=== PATIENT | male | born 1950 | race Caucasian/White ===

== ENCOUNTER 2024-05-25 22:04 | Observation (INO) ==
[2024-05-25 22:50] LABS: Basophils # (auto) 0.06 K/uL (0.00-0.20); Basophils % (auto) 0.4 %; Eosinophils # (auto) 0.07 K/uL (0.00-0.50); Eosinophils % (auto) 0.4 %; Hematocrit (blood only) 47.6 % (42.0-52.0); Hemoglobin 16.3 g/dl (14.0-18.0); Immature Granulocytes # (auto) 0.05 K/uL (0.01-0.20); Immature Granulocytes % (auto) 0.3 %; Lymphocytes # (auto) 3.25 K/uL (1.20-3.40); Lymphocytes % (auto) 20.5 %; Mean Corpuscular Hemoglobin 28.9 pg (25.0-34.0); Mean Corpuscular Hgb Conc 34.2 g/dL (32.0-36.0); Mean Corpuscular Volume 84.4 fL (80.0-100.0); Mean Platelet Volume 9.8 fL (9.4-12.4); Monocytes # (auto) 1.01 K/uL (0.11-0.59); Monocytes % (auto) 6.4 %; Neutrophils # (auto) 11.44 K/uL (1.40-6.50); Platelet Count 345 K/uL (130-400); RDW Coefficient of Variation 13.1 % (11.5-14.5); RDW Standard Deviation 40.2 fL (36.4-46.3); Red Blood Count 5.64 M/uL (4.70-6.10); White Blood Count 15.88 K/ul (4.8-10.8)
[2024-05-25 23:08] LABS: Alanine Aminotransferase 13 U/L (7-52); Albumin Globulin Ratio 1.3 (0.9-2); Albumin Level 4.1 gm/dl (3.4-5.0); Alkaline Phosphatase 72 U/L (34-104); BUN Creatinine Ratio 13.9 (10-20); Bilirubin,Total 0.6 mg/dl (0.2-1.0); Blood Urea Nitrogen 14 mg/dl (6-23); Calcium 9.1 mg/dl (8.6-10.3); Carbon Dioxide 27 mmol/L (21-32); Chloride 101 mmol/L (98-107); Globulin 3.2 gm/dl (2.5-4.0); Glucose 152 mg/dl (70-99(Fasting)); Total Protein 7.3 gm/dl (6.0-8.3)
[2024-05-25 23:23] LABS: INR 1.9 (0.9-1.1); Partial Thromboplastin Ratio 3.5; Prothrombin Time 19.8 Seconds (9.0-12.0)
[2024-05-25 23:41] LABS: Troponin I High Sensitivity 2034.6 pg/ml (0-20)
[2024-05-25] MEDS ORDERED: Heparin IV Adult Wt-Based Low-Dose w/ INITIAL Bolus Protocol IV STA (23:49)
[2024-05-25] MEDS: OPTIRAY 320 125ml IV ONE (23:50)
[2024-05-25 23:57] LABS: Partial Thromboplastin Time 93 Seconds (21-31)
[2024-05-26] MEDS ORDERED: HEPARIN SOD (PORCINE) 1000 UNIT/ML IV ONE (00:05)
[2024-05-26 00:06] LABS: Potassium 3.7 mmol/L (3.5-5.1)
--- NOTE | 2024-05-26 00:09 | CT Scan Report ---
Exam(s): CTA CHEST IV Amt: 117 ml opti 320 EXAM: CT Angiography Chest With Intravenous Contrast CLINICAL HISTORY: Reason for exam: hypoxia, ? PE vs pna. TECHNIQUE: Axial computed tomographic angiography images of the chest with intravenous contrast. Automated exposure control was utilized for the study. A dose lowering technique was utilized adhering to the principles of ALARA. MIP reconstructed images were created and reviewed. COMPARISON: No relevant prior studies available. FINDINGS: Pulmonary arteries: Bilateral upper lower and right middle lobe pulmonary emboli. There is flattening and bowing of the intraventricular septum consistent with right heart strain. Aorta: No acute findings. No thoracic aortic aneurysm. Lungs: Unremarkable. No mass. No consolidation. Pleural space: Unremarkable. No significant effusion. No pneumothorax. Heart: RV to LV ratio:1.7. No cardiomegaly. No significant pericardial effusion. Bones/joints: No acute fracture. No dislocation. Soft tissues: Unremarkable. Lymph nodes: Unremarkable. No enlarged lymph nodes. IMPRESSION: Bilateral upper, lower, and right middle lobe pulmonary emboli with evidence of right heart strain Communications: 05/26/24 00:06 Call Doctor Regarding Pulmonary Embolism, called Dr. Mcmahon on 05/26 00:08 (-04:00) Electronically signed by: Wang King MD 05/26/24 00:08 AM
[2024-05-26] MEDS: ASPIRIN CHEW 324 MG PO STA (00:10)
[2024-05-26 00:27] LABS: Partial Thromboplastin Ratio 1.1; Partial Thromboplastin Time 29 Seconds (21-31); Prothrombin Time 10.8 Seconds (9.0-12.0)
--- NOTE | 2024-05-26 00:34 | History & Physical Report ---
Date of Service May 26, 2024 Assessment & Plan (1) Pulmonary embolism, bilateral: Plan: 73yo male presenting with acute submassive pulmonary emboli. Symptom onset appx 16:00 with shortness of breath and bandlike chest discomfort. Patient with elevated HR in the upper 90's. Blood pressure has been relatively stable with one lower reading of 96/72. Labs are concerning with markedly elevated troponin level of 2034.6, elevated ASQ=713 and elevated lactate of 2.7 CT as above with extensive clot burden and evidence of right heart strain - bowing of intraventricular septum -Admit to PCU -Continue Heparin gtt -Check 2D echo -Check bilateral LE doppler -Follow up on Hypercoag panel as sent from the ER *Consideration to administering 1/4 to 1/2 dose of alteplase given patient's clinical picture - submassive PE. Presently is not demonstrating clinical evid ence of cardiovascular collapse, hypotension or tachycardia. PESI - Class II, Low risk. Modified PESI - high risk Shock index - 0.9 which could demonstrate occult shock present Will repeat lactate now. If increasing will discuss alteplase and MICU transfer (2) Hypertension: Plan: Blood pressure adequate at present. Patient does have history of HTN for which he takes HCTZ -Hold HCTZ -Closely monitor BP and hemodynamics (3) GERD (gastroesophageal reflux disease): Plan: Chronic -Protonix 40mg po daily F/E/N - saline lock. Avoid excess IVF given evidence of right heart strain, electrolytes WNL, Regular diet as tolerated Ppx - Heparin gtt Code - Full per discussion with patient Dispo -Admit to PCU, low threshold for MICU transfer History of Present Illness Chief Complaint: chest pain and shortness of breath Primary Care Provider: AMANDA Tavares Kash Alfonso is a 73yo male with history of HTN, GERD, recent urological procedure presenting with acute pulmonary emboli. Patient reports he went out to get the mail this afternoon around 15:30 when he became acutely short of breath and developed some bandlike chest pain across his anterior chest with radiation into his back. He reports feeling dizzy and very short of breath but did not pass out. Patient found to have extensive bilateral pulmonary emboli with CT evidence of right heart strain ER Course: Heparin bolus and gtt Allergies Allergy/AdvReac Type Severity Reaction Status Date / Time No Known Allergies Allergy Unverified 05/26/24 00:08 Home Medications Medication Instructions Recorded Confirmed Type esomeprazole magnesium 20 mg 20 mg PO DAILY 05/26/24 05/26/24 History capsule,delayed release hydrochlorothiazide 12.5 mg tablet 12.5 mg PO DAILY 05/26/24 05/26/24 History phenazopyridine 100 mg tablet 100 mg PO TID PRN urinary 05/26/24 05/26/24 History discomfort Past Med/Surg History Problem List (Updated 05/26/24 @ 02:23 by Jessica Awad DO) Prostate cancer Elevated troponin (Acute) Pulmonary embolism, bilateral (Acute) Medical History (Updated 05/26/24 @ 02:23 by Jessica Awad DO) GERD (gastroesophageal reflux disease) Hypertension Surgical History (Updated 05/26/24 @ 02:23 by Jessica Awad DO) History of prostate surgery Family History (Updated 05/26/24 @ 02:24 by Jessica Awad DO) Other No significant family history Social History (Updated 05/26/24 @ 02:24 by Jessica Awad DO) Tobacco Type: Smokeless Tobacco (Dip or Chew) Second Hand Exposure: No; Do You Dip or Chew Tobacco: Yes; Hx Alcohol Use: No Hx Substance Use: No Preferred Language: Italian Communication Ability: Effective Patient Escort Required: No Beliefs That Will Affect Care: None Current Living Situation: Spouse Current Living Situation Comment: Leaves at home Feels Safe at Home: Yes Assistive Devices: None Review of Systems Review of Systems: All systems reviewed & are unremarkable except as noted in HPI & below Physical Exam Physical Exam: General: patient resting comfortably, NAD, non-toxic in appearance, AA&O x 4, anxious in appearance Skin: warm, dry, intact, no rashes or lesions, no mottling HEENT: NC/AT, PERRL, EOMI, anicteric sclera, conjunctiva without injection, external ear normal to inspection and nontender, nares patent, moist mucus membranes, dentition intact, no oropharyngeal lesions, neck supple, trachea midline, no LAD, no thyromegaly, no JVD Heart: +S1/S2, regular, no m/r/g Lungs: equal air entry bilaterally, no rales/rhonchi/wheezes Abd: +BS, soft, NT/ND, no masses/organomegaly/ascites Ext: warm, 2+ pulses in UE/LE bilaterally, no clubbing/cyanosis or edema, no calf tenderness Neuro: nonfocal, patient AA&O x 4, speech intact, no facial droop, moving all extremities on command with equal strength 5/5 Results & Data Results & Data Vital Signs (Past 12 Hours) Vital Signs Temp Pulse Resp BP Pulse Ox O2 Del Method O2 Flow Rate 05/26/24 00:00 105/85 05/25/24 23:54 96 H 11 L 96/72 L 94 05/25/24 22:48 94 Nasal Cannula 2 05/25/24 22:36 95 H 26 H 105/85 93 05/25/24 22:28 97 H 05/25/24 22:08 88 L Room Air, Nasal Cannula 05/25/24 21:51 36.4 C L 74 22 118/87 99 Nasal Cannula 2 05/25/24 21:51 2 Laboratory Results Laboratory Results WBC 15.88 K/ul (4.8-10.8) H 05/25/24 22:20 RBC 5.64 M/uL (4.70-6.10) 05/25/24 22:20 Hgb 16.3 g/dl (14.0-18.0) 05/25/24 22:20 Hct 47.6 % (42.0-52.0) 05/25/24 22:20 MCV 84.4 fL (80.0-100.0) 05/25/24 22:20 MCH 28.9 pg (25.0-34.0) 05/25/24 22:20 MCHC 34.2 g/dL (32.0-36.0) 05/25/24 22:20 RDW Std Deviation 40.2 fL (36.4-46.3) 05/25/24 22:20 RDW Coeff of Jamilah 13.1 % (11.5-14.5) 05/25/24 22:20 Plt Count 345 K/uL (130-400) 05/25/24 22:20 MPV 9.8 fL (9.4-12.4) 05/25/24 22:20 Immature Gran % (Auto) 0.3 % 05/25/24 22:20 Neut % (Auto) 72.0 % 05/25/24 22:20 Lymph % (Auto) 20.5 % 05/25/24 22:20 Colbert % (Auto) 6.4 % 05/25/24 22:20 Eos % (Auto) 0.4 % 05/25/24 22:20 Baso % (Auto) 0.4 % 05/25/24 22:20 Neut # (Auto) 11.44 K/uL (1.40-6.50) H 05/25/24 22:20 Lymph # (Auto) 3.25 K/uL (1.20-3.40) 05/25/24 22:20 Colbert # (Auto) 1.01 K/uL (0.11-0.59) H 05/25/24 22:20 Eos # (Auto) 0.07 K/uL (0.00-0.50) 05/25/24 22:20 Baso # (Auto) 0.06 K/uL (0.00-0.20) 05/25/24 22:20 Immature Gran # (Auto) 0.05 K/uL (0.01-0.20) 05/25/24 22:20 PT 10.8 Seconds (9.0-12.0) 05/25/24 23:23 INR 1.0 (0.9-1.1) 05/25/24 23:23 APTT 29 Seconds (21-31) 05/25/24 23:23 PTT Ratio 1.1 05/25/24 23:23 Sodium 137 mmol/L (136-145) 05/25/24 23:23 Potassium 3.7 mmol/L (3.5-5.1) 05/25/24 23:23 Chloride 101 mmol/L (98-107) 05/25/24 22:20 Carbon Dioxide 27 mmol/L (21-32) 05/25/24 22:20 Anion Gap TNP 05/25/24 22:20 BUN 14 mg/dl (6-23) 05/25/24 22:20 Creatinine 1.01 mg/dl (0.6-1.4) 05/25/24 22:20 Est Cr Clr Drug Dosing Not Reportable 05/25/24 22:20 eGFR 77.56 05/25/24 22:20 BUN/Creatinine Ratio 13.9 (10-20) 05/25/24 22:20 Glucose 152 mg/dl (70-99(Fasting)) H 05/25/24 22:20 Lactate 2.7 mmol/L (0.4-2.0) H* 05/26/24 00:40 Calcium 9.1 mg/dl (8.6-10.3) 05/25/24 22:20 Total Bilirubin 0.6 mg/dl (0.2-1.0) 05/25/24 22:20 AST 21 U/L (13-39) 05/25/24 23:23 ALT 13 U/L (7-52) 05/25/24 22:20 Alkaline Phosphatase 72 U/L (34-104) 05/25/24 22:20 Troponin I High Sens 2088.7 pg/ml (0-20) H* 05/26/24 00:40 B-Natriuretic Peptide 127 pg/ml (0-100) H 05/25/24 23:23 Total Protein 7.3 gm/dl (6.0-8.3) 05/25/24 22:20 Albumin 4.1 gm/dl (3.4-5.0) 05/25/24 22:20 Globulin 3.2 gm/dl (2.5-4.0) 05/25/24 22:20 Albumin/Globulin Ratio 1.3 (0.9-2) 05/25/24 22:20 Procalcitonin < 0.02 ng/ml (0-0.5) 05/25/24 23:28 Adenovirus (PCR) Not Detected (NotDetected) 05/26/24 00:13 B. pertussis DNA (PCR) Not Detected (NotDetected) 05/26/24 00:13 B.parapertussis DNA PCR Not Detected (NotDetected) 05/26/24 00:13 C. pneumoniae DNA (PCR) Not Detected (NotDetected) 05/26/24 00:13 Coronavirus OC43 (PCR) Not Detected (NotDetected) 05/26/24 00:13 Coronavirus HKU1 (PCR) Not Detected (NotDetected) 05/26/24 00:13 Coronavirus 229E (PCR) Not Detected (NotDetected) 05/26/24 00:13 SARS-CoV-2 (PCR) Not Detected (NotDetected) 05/26/24 00:13 Coronavirus NL63 (PCR) Not Detected (NotDetected) 05/26/24 00:13 Human Metapneumovir PCR Not Detected (NotDetected) 05/26/24 00:13 Influenza Type A (PCR) Not Detected (NotDetected) 05/26/24 00:13 Influenza Type B (PCR) Not Detected (NotDetected) 05/26/24 00:13 M. pneumoniae (PCR) Not Detected (NotDetected) 05/26/24 00:13 Parainfluenza 1 (PCR) Not Detected (NotDetected) 05/26/24 00:13 Parainfluenza 2 (PCR) Not Detected (NotDetected) 05/26/24 00:13 Parainfluenza 3 (PCR) Not Detected (NotDetected) 05/26/24 00:13 Parainfluenza 4 (PCR) Not Detected (NotDetected) 05/26/24 00:13 RSV (PCR) Not Detected (NotDetected) 05/26/24 00:13 Entero/Rhino (PCR) Not Detected (NotDetected) 05/26/24 00:13 Impressions Chest CTA 05/25/24 23:28 CR Exam(s): CTA CHEST IV Amt: 117 ml opti 320 EXAM: CT Angiography Chest With Intravenous Contrast CLINICAL HISTORY: Reason for exam: hypoxia, ? PE vs pna. TECHNIQUE: Axial computed tomographic angiography images of the chest with intravenous contrast. Automated exposure control was utilized for the study. A dose lowering technique was utilized adhering to the principles of ALARA. MIP reconstructed images were created and reviewed. COMPARISON: No relevant prior studies available. FINDINGS: Pulmonary arteries: Bilateral upper lower and right middle lobe pulmonary emboli. There is flattening and bowing of the intraventricular septum consistent with right heart strain. Aorta: No acute findings. No thoracic aortic aneurysm. Lungs: Unremarkable. No mass. No consolidation. Pleural space: Unremarkable. No significant effusion. No pneumothorax. Heart: RV to LV ratio:1.7. No cardiomegaly. No significant pericardial effusion. Bones/joints: No acute fracture. No dislocation. Soft tissues: Unremarkable. Lymph nodes: Unremarkable. No enlarged lymph nodes. IMPRESSION: Bilateral upper, lower, and right middle lobe pulmonary emboli with evidence of right heart strain Communications: 05/26/24 00:06 Call Doctor Regarding Pulmonary Embolism, called Dr. Mcmahon on 05/26 00:08 (-04:00) Electronically signed by: Wang King MD 05/26/24 00:08 AM ECG Additional Comments: EKG with sinus tachycardia at 105bpm, QT=228, LCY=658, FQa=250, rightward axis with incomplete RBBB. No acute ischemic changes. No previous EKGs available for comparison. Code Status & VTE Plan VTE Prophylaxis Plan VTE Prophylaxis will be ordered: Yes PG Care Time/CCT Total # of Minutes Spent Total Time Spent with Patient: Total time spent is greater than 50% in coordination of care (as documented) at patient's floor/unit and/or counseling patient: Coding Level of Care Code 40352 INT INP/OBS CARE 3/75MIN Diagnoses Pulmonary embolism, bilateral I26.99 Hypertension I10 GERD (gastroesophageal reflux disease) K21.9
--- NOTE | 2024-05-26 00:37 | Emergency Department Note ---
Impression & Plan Pulmonary embolism, bilateral, Elevated troponin ED Provider Note NAME: DANA GERMAN AGE: 73 SEX: Male INFORMANT: Patient ED PROVIDER(S): Burton Mcmahon MD CHIEF COMPLAINT: Shortness of breath PLAN: Disposition: Admitted Outpatient prescription management: none Referral: None MEDICAL DECISION MAKING: Patient present because of shortness of breath. He was feeling much better with supplemental oxygen. He did receive aspirin prehospital. ECG showed nonspecific inferior changes. No ST elevation. Chest x-ray was done and was unremarkable. Patient had a mild leukocytosis. BioFire testing ordered as well as blood cultures. Patient had an unremarkable chemistry panel however his cardiac troponin was markedly elevated. This was very concerning and CT imaging of the chest was ordered. Patient was found to have bilateral pulmonary emboli with right heart strain. Hypercoagulability orders were done. Patient had heparin ordered. His coagulation studies came back abnormal which was unexpected as the patient is not on any anticoagulation. The patient had repeat coagulation studies done and they were normal. Heparin was initiated. Patient and family updated. Consultation was made with Dr. Awad of the [facility] service. Patient was evaluated in the ER for further management. Care/management discussed with: information resources manager Level of care consideration(s): After review of the information above and other included data, I feel the patient requires escalation of care to admission Triage Nursing notes: reviewed and agree them. Vital Signs: reviewed and remarkable for borderline hypoxia Additional History obtained from: none Chronic Medical/Social Conditions affecting care: Hypertension Prior/ Outside/ External records reviewed: none Differential Diagnosis: Reactive airway disease, pneumonia, pneumothorax, COPD, CHF, infections, cardiac ischemia, pulmonary embolism, musculoskeletal, gastrointestinal, as well as other pathologies. Diagnostics, independently interpreted by me: ECG: Twelve-lead ECG reveals sinus tachycardia at 105 bpm. Rightward axis. Incomplete right bundle keren block and nonspecific ST inferiorly. No ST elevation Cardiac Monitoring: Cardiac monitoring ordered by me: The patient was placed on continuous cardiac monitoring and observed. It revealed a n sinus rhythm at 96 beats per minute without ectopy or evidence of dysrhythmia. Medical decision rules: none Imaging studies: Chest x-ray. Findings: A chest x-ray was performed and revealed no pneumothorax, effusion, infiltrate, pulmonary edema, free air under the diaphragm, or wide mediastinum. Impression: No acute disease. CT scan of the chest reveals bilateral pulmonary emboli. I refer you to the EMR for further details. HPI: 73 year old Male arrives for evaluation of shortness of breath. This started around 1630 this afternoon and is improved. The patient also notes the following associated symptoms, chest pain, diaphoresis. The patient has been given aspirin and oxygen by EMS for relieving factors. Current pain is rated as 3/10. No prior history of the same. Patient denies any history of cardiac issues. No prolonged travel or sick contacts. Pt denies LOC, headache, fevers, chills, visual changes, neck pain, leg swelling, calf pain nausea, vomiting, abdominal pain, back pain, melena, hematochezia, urinary symptoms, numbness, weakness, lymphadenopathy, rash, or other complaints.. PAST MEDICAL HISTORY: See Below, hypertension PAST SURGICAL HISTORY: See Below, SOCIAL HISTORY: See Below, HOME MEDICATIONS: See Below ALLERGIES: See Below VITALS: See Below PHYSICAL EXAMINATION: GENERAL: Awake, alert, mildly dyspneic-appearing, in no distress HENT: Normocephalic, atraumatic. Oropharynx unremarkable. EYES: Normal conjunctiva. Sclera non-icteric. NECK: Inspection normal. Non-tender. Supple. No nuchal rigidity. FROM. No masses. RESPIRATORY: Clear to auscultation. No wheezes. No rales. Normal respiratory effort. CARDIAC: Normal rate. Normal rhythm. No murmurs. No rubs. Extremities warm and well perfused. Pulses equal. No JVD. GI: Soft, non-distended. No tenderness to palpation. No rebound or guarding. No masses. RECTAL: Deferred. MUSCULOSKELETAL: Atraumatic. Chest examination reveals no tenderness. The back is symmetrical on inspection without obvious abnormality. There is no CVA tenderness to palpation. No joint edema. LOWER EXTREMITIES: Calves are equal size bilaterally and non-tender. No edema. No discoloration. NEURO: Normal sensorium. No sensory or motor deficits noted. SKIN: No rash or jaundice noted. PROCEDURES: none CRITICAL CARE: I have personally [id number] of critical care time in the direct management of this patient. This includes bedside care, interpretation of diagnostic studies, and testing, discussion with consultants, patient, and family members, and other required patient management activities. These minutes are in excess of all separately billable procedures. OBSERVATION NOTE: none Past Med/Surg History Problem List (Updated 05/26/24 @ 00:36 by Burton Mcmahon MD) Elevated troponin (Acute) Pulmonary embolism, bilateral (Acute) Social History Tobacco Type: Smokeless Tobacco (Dip or Chew) Preferred Language: Swedish Feels Safe at Home: Yes Allergies Allergies Allergy/AdvReac Type Severity Reaction Status Date / Time No Known Allergies Allergy Unverified 05/26/24 00:08 Home Meds Home Medications Medication Instructions Recorded Confirmed esomeprazole magnesium 20 mg 20 mg PO DAILY 05/26/24 05/26/24 capsule,delayed release hydrochlorothiazide 12.5 mg tablet 12.5 mg PO DAILY 05/26/24 05/26/24 phenazopyridine 100 mg tablet 100 mg PO TID PRN urinary 05/26/24 05/26/24 discomfort Results & Data (ED) Vital Signs Vital Signs - 24 hr 05/25/24 21:51 05/25/24 21:51 05/25/24 22:08 Temperature 36.4 C L Temperature Source Oral Pulse Rate 74 Pulse Rate from SpO2 Sensor Respiratory Rate 22 Respiratory Effort / Characteristics SOB on Exertion Non-Labored Respiratory Depth Normal Respiratory Pattern Regular Blood Pressure 118/87 Blood Pressure Mean 97 Pulse Oximetry 99 88 L Oxygen Delivery Method Nasal Cannula Room Air Nasal Cannula Oxygen Flow Rate 2 2 Sepsis Recent Fever Within 48 Hours No Sepsis New/Unexplained Change in Mental Status No Sepsis Action Taken by Nursing No Action Required Oxygen Flow Rate - Titration 2 Pulse Oximetry Post Tiitration 92 05/25/24 22:28 05/25/24 22:36 05/25/24 22:48 Temperature Temperature Source Pulse Rate 97 H 95 H Pulse Rate from SpO2 Sensor 96 H Respiratory Rate 26 H Respiratory Effort / Characteristics Respiratory Depth Respiratory Pattern Blood Pressure 105/85 Blood Pressure Mean 91 Pulse Oximetry 93 94 Oxygen Delivery Method Nasal Cannula Oxygen Flow Rate 2 Sepsis Recent Fever Within 48 Hours Sepsis New/Unexplained Change in Mental Status Sepsis Action Taken by Nursing Oxygen Flow Rate - Titration Pulse Oximetry Post Tiitration 05/25/24 23:54 05/26/24 00:00 Temperature Temperature Source Pulse Rate 96 H Pulse Rate from SpO2 Sensor 96 H Respiratory Rate 11 L Respiratory Effort / Characteristics Respiratory Depth Respiratory Pattern Blood Pressure 96/72 L 105/85 Blood Pressure Mean 80 93 Pulse Oximetry 94 Oxygen Delivery Method Oxygen Flow Rate Sepsis Recent Fever Within 48 Hours Sepsis New/Unexplained Change in Mental Status Sepsis Action Taken by Nursing Oxygen Flow Rate - Titration Pulse Oximetry Post Tiitration Laboratory Data 05/25/24 22:20 05/25/24 23:23 Lab Results 05/25/24 05/25/24 05/25/24 Range/Units 22:20 23:23 23:28 WBC 15.88 H (4.8-10.8) K/ul RBC 5.64 (4.70-6.10) M/uL Hgb 16.3 (14.0-18.0) g/dl Hct 47.6 (42.0-52.0) % MCV 84.4 (80.0-100.0) fL MCH 28.9 (25.0-34.0) pg MCHC 34.2 (32.0-36.0) g/dL RDW Std Deviation 40.2 (36.4-46.3) fL RDW Coeff of Jamilah 13.1 (11.5-14.5) % Plt Count 345 (130-400) K/uL MPV 9.8 (9.4-12.4) fL Immature Gran % (Auto) 0.3 % Neut % (Auto) 72.0 % Lymph % (Auto) 20.5 % [place] % (Auto) 6.4 % Eos % (Auto) 0.4 % Baso % (Auto) 0.4 % Neut # (Auto) 11.44 H (1.40-6.50) K/uL Lymph # (Auto) 3.25 (1.20-3.40) K/uL [place] # (Auto) 1.01 H (0.11-0.59) K/uL Eos # (Auto) 0.07 (0.00-0.50) K/uL Baso # (Auto) 0.06 (0.00-0.20) K/uL Immature Gran # (Auto) 0.05 (0.01-0.20) K/uL PT 19.8 H 10.8 (9.0-12.0) Seconds INR 1.9 H 1.0 (0.9-1.1) APTT 93 H* 29 (21-31) Seconds PTT Ratio 3.5 1.1 Sodium TNP 137 Potassium TNP 3.7 Chloride 101 (98-107) mmol/L Carbon Dioxide 27 (21-32) mmol/L Anion Gap TNP BUN 14 (6-23) mg/dl Creatinine 1.01 (0.6-1.4) mg/dl Est Cr Clr Drug Dosing Not Reportable eGFR 77.56 BUN/Creatinine Ratio 13.9 (10-20) Glucose 152 H (70-99(Fasting)) mg/dl Calcium 9.1 (8.6-10.3) mg/dl Total Bilirubin 0.6 (0.2-1.0) mg/dl AST TNP 21 ALT 13 (7-52) U/L Alkaline Phosphatase 72 (34-104) U/L Troponin I High Sens 2034.6 H* (0-20) pg/ml Total Protein 7.3 (6.0-8.3) gm/dl Albumin 4.1 (3.4-5.0) gm/dl Globulin 3.2 (2.5-4.0) gm/dl Albumin/Globulin Ratio 1.3 (0.9-2) Procalcitonin < 0.02 (0-0.5) ng/ml Administered Medications Discontinued Medications Aspirin (Aspirin Chew 324 Mg) 324 mg PO NOW STA Stop: 05/25/24 23:50 Last Admin: 05/26/24 00:10 Dose: Not Given Documented By: AN Ioversol (Optiray 320 125ml) 117 ml IV ONCE ONE Stop: 05/25/24 23:51 Last Admin: 05/25/24 23:50 Dose: 117 ml Documented By: PLW Imaging Data Radiologist's Impression: Chest CTA 05/25/24 23:28 CR Exam(s): CTA CHEST IV Amt: 117 ml opti 320 EXAM: CT Angiography Chest With Intravenous Contrast CLINICAL HISTORY: Reason for exam: hypoxia, ? PE vs pna. TECHNIQUE: Axial computed tomographic angiography images of the chest with intravenous contrast. Automated exposure control was utilized for the study. A dose lowering technique was utilized adhering to the principles of ALARA. MIP reconstructed images were created and reviewed. COMPARISON: No relevant prior studies available. FINDINGS: Pulmonary arteries: Bilateral upper lower and right middle lobe pulmonary emboli. There is flattening and bowing of the intraventricular septum consistent with right heart strain. Aorta: No acute findings. No thoracic aortic aneurysm. Lungs: Unremarkable. No mass. No consolidation. Pleural space: Unremarkable. No significant effusion. No pneumothorax. Heart: RV to LV ratio:1.7. No cardiomegaly. No significant pericardial effusion. Bones/joints: No acute fracture. No dislocation. Soft tissues: Unremarkable. Lymph nodes: Unremarkable. No enlarged lymph nodes. IMPRESSION: Bilateral upper, lower, and right middle lobe pulmonary emboli with evidence of right heart strain Communications: 05/26/24 00:06 Call Doctor Regarding Pulmonary Embolism, called Dr. Mcmahon on 05/26 00:08 (-04:00) Electronically signed by: Wang King MD 05/26/24 00:08 AM Discharge Plan Visit Data Chief Complaint: Cardiac Assessment Stated Complaint: SUBSTERNAL CHEST PAIN AND SOB ED Provider: Burton Mcmahon Discharge Problem: Pulmonary embolism, bilateral, Elevated troponin Forms Stand Alone Forms: My [facility] [employer] [facility] Prescriptions Prescriptions: No Action phenazopyridine 100 mg Tablet 100 mg PO TID PRN (Reason: urinary discomfort) esomeprazole magnesium 20 mg Capsule,Delayed Release(Dr/Ec) 20 mg PO DAILY hydrochlorothiazide 12.5 mg Tablet 12.5 mg PO DAILY Referrals Referrals: Brianna Luo CRNP [Primary Care Provider] -
[2024-05-26] MEDS: HEPARIN SOD (PORCINE) 1000 UNIT/ML IV ONE (00:43)
[2024-05-26] MEDS: HEPARIN SODIUM/DEXTROSE 25,000 UNITS/500 ML BAG IV SCH (00:44)
[2024-05-26 01:28] LABS: Adenovirus PCR Not Detected (NotDetected); Bordetella parapertussis PCR Not Detected (NotDetected); Bordetella pertussis PCR Not Detected (NotDetected); Chlamydia pneumoniae PCR Not Detected (NotDetected); Coronavirus 229E PCR Not Detected (NotDetected); Coronavirus CoV-2 (COVID19)PCR Not Detected (NotDetected); Coronavirus HKU1 PCR Not Detected (NotDetected); Coronavirus NL63 PCR Not Detected (NotDetected); Coronavirus OC43PCR Not Detected (NotDetected); Human Metapneumovirus PCR Not Detected (NotDetected); Influenza A PCR Not Detected (NotDetected); Influenza B PCR Not Detected (NotDetected); Mycoplasma pneumoniae PCR Not Detected (NotDetected); Parainfluenza Virus 1 PCR Not Detected (NotDetected); Parainfluenza Virus 2 PCR Not Detected (NotDetected); Parainfluenza Virus 3 PCR Not Detected (NotDetected); Parainfluenza Virus 4 PCR Not Detected (NotDetected); Respiratory Syncytial VirusPCR Not Detected (NotDetected); Rhinovirus/Enterovirus PCR Not Detected (NotDetected)
[2024-05-26] MEDS ORDERED: ACETAMINOPHEN 325 MG TAB PO PRN (02:16)
[2024-05-26] MEDS ORDERED: ONDANSETRON INJ 2 MG/ML 2 ML VIAL IV PRN (02:16)
[2024-05-26 03:20] LABS: Troponin I High Sensitivity 1985.6 pg/ml (0-20)
--- NOTE | 2024-05-26 07:01 | XRay Report ---
SINGLE VIEW CHEST CLINICAL HISTORY: Atypical chest pain FINDINGS: 2 AP, portable, upright chest radiographs or obtained. No prior studies are available for c omparison at the time of dictation. The examination is degraded by portable technique, apical lordoti c positioning, and patient rotation. The cardiomediastinal silhouette is top normal for projection. The lungs and pleural spaces are clear. No pneumothorax is seen. The skeletal structures are osteopen ic. The bony thorax is grossly intact. IMPRESSION: No acute cardiopulmonary abnormality is identified. ACT 112: Negative or not required by law. Electronically signed by: Ha Tomas M.D. 05/26/2024 6:59 AM
--- NOTE | 2024-05-26 07:19 | Electrocardiogram Report ---
Test Reason : Blood Pressure : */* mmHG Vent. Rate : 105 BPM Atrial Rate : 105 BPM P-R Int : 132 ms QRS Dur : 104 ms QT Int : 338 ms P-R-T Axes : 13 96 34 degrees QTcB Int : 446 ms Sinus tachycardia Rightward axis Incomplete right bundle branch block Nonspecific ST abnormality Abnormal ECG No previous ECGs available Confirmed by Georgi Kelly ([id number]) on 05/26/2024 7:19:22 AM Referred By: Confirmed By: Georgi Kelly
--- NOTE | 2024-05-26 07:21 | Ultrasound Report ---
BILATERAL LOWER EXTREMITY VENOUS DOPPLER HISTORY: Screening for DVT. Pulmonary embolus. ?VTE - patient with PE COMPARISON STUDY: None. FINDINGS: There is normal compressibility, flow, and augmentation within the left lower extremity yvonne p venous structures. Likely acute occlusive thrombus involves one of the duplicated right sided popliteal veins. No additi onal right-sided DVT identified. IMPRESSION: 1. Likely acute DVT of the right popliteal vein. 2. No left-sided DVT identified. ACT 112: Negative or not required by law. Electronically signed by: Jose Rosario M.D. 05/26/2024 7:20 AM
[2024-05-26 07:47] LABS: ANTI-Xa, UFH(UnfractionatedHep 0.35 IU/ml (0.3-0.7)
[2024-05-26] MEDS: PANTOprazole 40 MG TAB PO SCH (08:33)
[2024-05-26] MEDS: D5W AND NSS 1,000 ML IV SCH (08:33)
--- NOTE | 2024-05-26 10:41 | XCELERA ---
[id number]
--- NOTE | 2024-05-26 12:03 | Hospitalist Progress Note ---
Date of Service May 26, 2024 Assessment & Plan (1) Pulmonary embolism, bilateral: Plan: With right ventricular pressure overload. No previous history of DVT T or PE. He is currently on a heparin drip. He will be switched to Eliquis therapy tomorrowMay 27. Hypercoagulable profile was ordered on admission and remains pending. (2) Acute respiratory failure with hypoxia: Plan: Supplemental oxygen per nasal cannula to maintain saturation greater than 90%. He probably will need oxygen for a while at the time of discharge. Will obtain two-step evaluation tomorrowMay 27 (3) Right leg DVT: Plan: Venous Doppler evaluation positive for right lower extremity DVT. He has no prior history of DVT. This appears to be unprovoked. Hypercoagulable profile pending. He is currently on a heparin drip and will be switched to oral Eliquis tomorrowMay 27 (4) Elevated troponin: Plan: No chest pain. No acute EKG changes. Telemetry (5) Hypertension: Plan: Hydrochlorothiazide is on hold. Continue IV fluids. Plan Hopefully home tomorrowMay 27, on Eliquis and supplemental oxygen. Admission and Anticipated Discharge Date Admission Date: May 26, 2024 Subjective Alert and oriented. No distress. Venous Doppler evaluation of both legs reveals right leg DVT. Cardiac echo reveals mild LVH with normal ejection fraction. Right ventricular enlargement noted with elevated right ventricular pressures. He remains on oxygen per nasal cannula and probably will need oxygen at discharge. Continue IV fluids for now. Hydrochlorothiazide is on hold. Will obtain two-step oxygen evaluation tomorrowMay 27. Probably home tomorrow on oxygen and Eliquis. Review of Systems 2 Review of Systems: Constitutionalno fever or chills ENTno blurred vision, no double vision, no epistaxis, no sore throat Respiratoryno cough, no wheezing, no shortness of breath Cardiacno palpitations, no chest pain, no syncope Aramis nausea, vomiting, diarrhea, melena, hematochezia GUno urinary retention, no urinary incontinence, no dysuria, no hematuria Musculoskeletalno joint pain, no muscle tenderness Skinno bruising, no rashes, no pruritus Neurono isolated weakness, no paresthesia, no weakness Psychno depression, no anxiety Physical Exam 2 Physical Exam: General-alert and oriented x3, no fever, no chills HEENT-head atraumatic and normocephalic, pupils equal and reactive to light, extraocular muscles intact Neck-no lymphadenopathy or thyromegaly, trachea midline Chest-clear to auscultation. No rales, wheezing or rhonchi Cardiac-regular rate and rhythm, normal S1 and S2 Abdomen-normal bowel sounds, no hepatosplenomegaly Extremities-no cyanosis, clubbing, or edema Neuro-cranial nerves II through XII intact, motor and sensory function within normal limits, strength symmetrical, no focal deficits Psych-normal affect, normal mood Results & Data Results & Data Vital Signs (Past 12 Hours) Vital Signs Temp Pulse Pulse Pulse Resp BP BP 05/26/24 10:38 36.6 C 85 18 122/80 05/26/24 07:42 36.8 C 91 H 18 106/72 05/26/24 07:15 86 05/26/24 07:15 05/26/24 02:43 98 H 05/26/24 02:16 05/26/24 02:16 36.7 C 108 H 22 129/95 05/26/24 02:16 05/26/24 01:45 36.7 C 108 H 22 129/95 05/26/24 01:28 95 H 18 112/81 05/26/24 00:00 105/85 Pulse Ox Pulse Ox O2 Del Method O2 Del Method O2 Flow Rate O2 Flow Rate 05/26/24 10:38 95 Nasal Cannula 3 05/26/24 07:42 91 Nasal Cannula 3 05/26/24 07:15 05/26/24 07:15 Room Air 05/26/24 02:43 05/26/24 02:16 Nasal Cannula 2 05/26/24 02:16 94 Nasal Cannula 2 05/26/24 02:16 94 Nasal Cannula 2 05/26/24 01:45 94 Nasal Cannula 2 05/26/24 01:28 93 Nasal Cannula 2 05/26/24 00:00 Laboratory Results 05/25/24 22:20 05/25/24 23:23 PG Care Time/CCT Total # of Minutes Spent Total Time Spent with Patient: Total time spent is greater than 50% in coordination of care (as documented) at patient's floor/unit and/or counseling patient: Coding Level of Care Code 44325 SUB INP/OBS CARE 3/50MIN Diagnoses Pulmonary embolism, bilateral I26.99 Acute respiratory failure with hypoxia J96.01 Right leg DVT I82.401 Elevated troponin R79.89 Hypertension I10
[2024-05-27 06:24] LABS: Hematocrit (blood only) 40.7 % (42.0-52.0); Hemoglobin 13.7 g/dl (14.0-18.0); Mean Corpuscular Hemoglobin 28.8 pg (25.0-34.0); Mean Corpuscular Hgb Conc 33.7 g/dL (32.0-36.0); Mean Corpuscular Volume 85.5 fL (80.0-100.0); Mean Platelet Volume 9.5 fL (9.4-12.4); Platelet Count 273 K/uL (130-400); RDW Coefficient of Variation 13.1 % (11.5-14.5); RDW Standard Deviation 40.4 fL (36.4-46.3); Red Blood Count 4.76 M/uL (4.70-6.10); White Blood Count 20.36 K/ul (4.8-10.8)
[2024-05-27 06:45] LABS: BUN Creatinine Ratio 10.9 (10-20); Calcium 8.5 mg/dl (8.6-10.3); Creatinine Clr Calc Pharmacy 69.8 ml/min; Potassium 3.7 mmol/L (3.5-5.1)
[2024-05-27] MEDS: APIXABAN 5 MG TABLET PO SCH (10:40)
--- NOTE | 2024-05-27 12:07 | Hospitalist Progress Note ---
Date of Service May 27, 2024 Assessment & Plan (1) Pulmonary embolism, bilateral: Plan: With right ventricular pressure overload. No previous history of DVT T or PE. Heparin drip has been switched over to Eliquis 10 mg twice daily. Hypercoagulable profile was ordered on admission and remains pending. (2) Acute respiratory failure with hypoxia: Plan: Supplemental oxygen per nasal cannula to maintain saturation greater than 90%. Two-step evaluation was completed today, May 27, and he will not require oxygen at rest but needs 2 L/min with ambulation. (3) Right leg DVT: Plan: Venous Doppler evaluation positive for right lower extremity DVT. He has no prior history of DVT. This appears to be unprovoked. Hypercoagulable profile pending. Heparin drip has been switched to oral Eliquis. (4) Elevated troponin: Plan: No chest pain. No acute EKG changes. Telemetry (5) Hypertension: Plan: Hydrochlorothiazide is on hold. This can be restarted at discharge. Plan Home today, May 27, on Eliquis and supplemental oxygen Admission and Anticipated Discharge Date Admission Date: May 26, 2024 Subjective Alert and oriented. No distress. Multiple family members are present. Will obtain PT evaluation prior to discharge. Two-step was completed and he is okay on room air at rest but needs 2 L/min with any ambulation. Heparin drip has been switched to Eliquis 10 mg twice a day for 21 days then he will have to be decreased to 5 mg twice a day going forward, by his PCP. His troponin was elevated but there is no evidence of chest pain or acute coronary syndrome. Review of Systems 2 Review of Systems: Constitutionalno fever or chills ENTno blurred vision, no double vision, no epistaxis, no sore throat Respiratoryno cough, no wheezing, no shortness of breath Cardiacno palpitations, no chest pain, no syncope Aramis nausea, vomiting, diarrhea, melena, hematochezia GUno urinary retention, no urinary incontinence, no dysuria, no hematuria Musculoskeletalno joint pain, no muscle tenderness Skinno bruising, no rashes, no pruritus Neurono isolated weakness, no paresthesia, no weakness Psychno depression, no anxiety Physical Exam 2 Physical Exam: General-alert and oriented x3, no fever, no chills HEENT-head atraumatic and normocephalic, pupils equal and reactive to light, extraocular muscles intact Neck-no lymphadenopathy or thyromegaly, trachea midline Chest-clear to auscultation. No rales, wheezing or rhonchi Cardiac-regular rate and rhythm, normal S1 and S2 Abdomen-normal bowel sounds, no hepatosplenomegaly Extremities-no cyanosis, clubbing, or edema Neuro-cranial nerves II through XII intact, motor and sensory function within normal limits, strength symmetrical, no focal deficits Psych-normal affect, normal mood Results & Data Results & Data Vital Signs (Past 12 Hours) Vital Signs Temp Pulse Pulse Pulse Pulse Pulse Resp 05/27/24 11:50 103 H 105 H 85 78 05/27/24 07:59 36.5 C 88 21 05/27/24 02:50 36.9 C 87 18 05/27/24 02:16 Resp Resp Resp Resp BP Pulse Ox Pulse Ox 05/27/24 11:50 24 24 18 14 91 05/27/24 07:59 127/85 94 05/27/24 02:50 130/83 96 05/27/24 02:16 Pulse Ox Pulse Ox Pulse Ox O2 Del Method O2 Del Method O2 Flow Rate O2 Flow Rate 05/27/24 11:50 86 L 95 95 2 05/27/24 07:59 Nasal Cannula 3 05/27/24 02:50 Nasal Cannula 3 05/27/24 02:16 Nasal Cannula O2 Flow Rate 05/27/24 11:50 05/27/24 07:59 05/27/24 02:50 05/27/24 02:16 2 Laboratory Results 05/27/24 05:59 05/27/24 05:59 PG Care Time/CCT Total # of Minutes Spent Total Time Spent with Patient: Total time spent is greater than 50% in coordination of care (as documented) at patient's floor/unit and/or counseling patient: Coding Level of Care Code 06125 SUB INP/OBS CARE 3/50MIN Diagnoses Pulmonary embolism, bilateral I26.99 Acute respiratory failure with hypoxia J96.01 Right leg DVT I82.401 Elevated troponin R79.89 Hypertension I10
--- NOTE | 2024-05-27 12:13 | Discharge Summary ---
Discharge Summary Date of Service May 27, 2024 Principal Dx & Hospital Course #1 = Principal Diagnosis (1) Pulmonary embolism, bilateral: With right ventricular pressure overload. No previous history of DVT T or PE. Heparin drip has been switched over to Eliquis 10 mg twice daily. Hypercoagulable profile was ordered on admission and remains pending. (2) Acute respiratory failure with hypoxia: Supplemental oxygen per nasal cannula to maintain saturation greater than 90%. Two-step evaluation was completed today, May 27, and he will not require oxygen at rest but needs 2 L/min with ambulation. (3) Right leg DVT: Venous Doppler evaluation positive for right lower extremity DVT. He has no prior history of DVT. This appears to be unprovoked. Hypercoagulable profile pending. Heparin drip has been switched to oral Eliquis. (4) Elevated troponin: No chest pain. No acute EKG changes. Telemetry (5) Hypertension: Hydrochlorothiazide is on hold. This can be restarted at discharge. Plan Home todayMay 27, on Eliquis and supplemental oxygen Admission HPI Per Admitting Provider Kash Alfonso is a 73yo male with history of HTN, GERD, recent urological procedure presenting with acute pulmonary emboli. Patient reports he went out to get the mail this afternoon around 15:30 when he became acutely short of breath and developed some bandlike chest pain across his anterior chest with radiation into his back. He reports feeling dizzy and very short of breath but did not pass out. Patient found to have extensive bilateral pulmonary emboli with CT evidence of right heart strain ER Course: Heparin bolus and gtt Discharge Exam General-alert and oriented x3, no fever, no chills HEENT-head atraumatic and normocephalic, pupils equal and reactive to light, extraocular muscles intact Neck-no lymphadenopathy or thyromegaly, trachea midline Chest-clear to auscultation. No rales, wheezing or rhonchi Cardiac-regular rate and rhythm, normal S1 and S2 Abdomen-normal bowel sounds, no hepatosplenomegaly Extremities-no cyanosis, clubbing, or edema Neuro-cranial nerves II through XII intact, motor and sensory function within normal limits, strength symmetrical, no focal deficits Psych-normal affect, normal mood Discharge Plan Discharge Items Patient Disposition: Home - Self-Care Reason For Visit: SUBSTERNAL CHEST PAIN AND SOB Discharge Diagnosis: Bilateral pulmonary emboli, acute hypoxic respiratory failure, right lower extremity DVT Activity: Per Instructions section Activity Comment: Wear oxygen as directed with activity until further notice Non-emergency contact: Primary Care Provider Call non-emergency contact if: you have any medication questions and your symptoms worsen Follow-up/Referrals: Brianna Luo CRNP [Primary Care Provider] - Diet: Regular and Heart Healthy Addtl Attending Provider Instructions: Wear oxygen at 2 L/min per nasal cannula with any activity. Take Eliquis 10 mg twice daily for 3 weeks then your primary care provider will need to decrease the dose to 5 mg twice daily after that. The usual duration of Eliquis therapy is anywhere from 3 to 6 months. Pending Studies at Discharge: Yes Studies:: Hypercoagulable lab results Stand-Alone Forms: [facility] [employer], Smoking Cessation Medications and DC Order Prescriptions: New Eliquis 5 mg Tablet 10 mg PO BID Qty: 84 0RF Continued phenazopyridine 100 mg Tablet 100 mg PO TID PRN (Reason: urinary discomfort) esomeprazole magnesium 20 mg Capsule,Delayed Release(Dr/Ec) 20 mg PO DAILY hydrochlorothiazide 12.5 mg Tablet 12.5 mg PO DAILY Discharge Orders: Discharge Order (Routine); Ordered 05/27/24 Ordered By: Joaquin King Admission Data Admit Date/Time: 05/26/24 00:33 Attending Provider: Joaquin King Admit Provider: Jessica Awad Primary Care Provider: Brianna Luo Hospital Stay Data Diagnostic Imagining Performed 05/25/24 23:28 CT angio chest PE protocol Stat 05/26/24 02:16 US venous doppler LE BI Routine Pending Results Patient Have Any Pending Studies at Discharge: Yes Discharge Instructions Given to Patient (Per Discharging Provider) Wear oxygen at 2 L/min per nasal cannula with any activity. Take Eliquis 10 mg twice daily for 3 weeks then your primary care provider will need to decrease the dose to 5 mg twice daily after that. The usual duration of Eliquis therapy is anywhere from 3 to 6 months. Total Time Total Time Spent Total Time Spent (In Minutes): 45 minutes Coding Level of Care Code 79098 INP/OBS DISCH >30 MIN Diagnoses Pulmonary embolism, bilateral I26.99 Acute respiratory failure with hypoxia J96.01 Right leg DVT I82.401 Elevated troponin R79.89 Hypertension I10
[2024-05-27 12:23] VITALS: RESP 20; TEMP 97.3; O2SAT 93
[2024-05-27 12:47] VITALS: BP 129/95; PULSE 108
[2024-05-31 23:17] LABS: PTT LA Screen 39 sec (<=40)
[2024-06-06 23:12] LABS: Factor 5 Mutation NEGATIVE
== END 2024-05-27 13:32 | disposition home or self-care (01) | DRG 175 ==
LOC: ED 22:04 → 2S 05-26 00:33 → SUATTDRO 05-26 00:33 → INTOOBSV 05-26 00:33 → 2S 05-26 01:28